=== PATIENT | female | born 1935 | race Caucasian/White ===

== ENCOUNTER 2016-02-24 05:23 | Inpatient (IN) | payer MEDICARE, BC ==
[2016-02-24] VITALS (11 sets, daily range): BP systolic 101–142; BP diastolic 54–111; PULSE 74–80; TEMP 97.2–98.4
[~2016-02-24] VITALS: Ht 162.6 cm; Wt 71.0 kg
[~2016-02-24 05:23] MED LIST: ASPIRIN 81M81 MG/TA2 PO; CALCIUM1 CAP PO; COUMADIN 1MG1 MG/TAB PO; COUMADIN 5MG5 MG/TAB PO; DUO-KAPS1 CAP PO; DYAZIDE 25 MG-31 CAP PO; DYRENIUM 50MG C50 MG PO; FISH OIL1000 MG PO; FOSAMAX 70MG TA70 MG PO; GLUCOSAMINE HC500 MG PO; GLUCOSAMINE MSM1 TAB PO; K-TAB20 PO; LOPRESSOR 225 MG/TAB PO; LOVENOX 3030 MG/0.3 SQ; MAG-G500 MG PO; MOBIC 7.5MG7.5 MG PO; OCUVITE1 TA1 PO; PREDNISONE1 MG PO; PRILOSEC 20MG20 MG PO; ROXICODONE 55 MG/TAB; VERELAN180 MG PO; ZOCOR 20MG20 MG PO
[2016-02-24] MEDS ORDERED: MAGNESIUM250 M1 PO (06:58)
[2016-02-24] MEDS ORDERED: K-DUR20 MEQ PO (07:00)
[2016-02-24] MEDS ORDERED: PREDNISONE 5MG5 MG PO (07:04)
[2016-02-24] MEDS ORDERED: PRAVACHOL 40MG40 MG PO (07:07)
[2016-02-25 05:47] VITALS: BP 110/53; PULSE 63; TEMP 98.7
[2016-02-25 07:08] LABS: MEAN CELL VOLUME 93 fl (80.0-100.0); MEAN CORPUSCULAR HGB CONC 32 g/dl (33.0-37.0); MEAN PLATELET VOLUME 13.5 fl (7.4-10.4); PLATELET COUNT 114 K/mm3 (130-400); RED BLOOD COUNT 3.46 M/mm3 (4.10-5.30); REDCELL DISTRIBUTION WIDTH-CV 14.4 % (11.5-14.5); WHITE BLOOD COUNT 10.9 K/mm3 (4.8-10.8)
[2016-02-25 07:09] LABS: HEMATOCRIT 32.1 % (37.0-47.0); HEMOGLOBIN 10.2 g/dl (12.5-16.0); MEAN CORPUSCULAR HEMOGLOBIN 29 pg (27.0-31.0)
[2016-02-25 07:12] LABS: INR 1.1 (0.8-3.0); PROTHROMBIN TIME 12.2 SECONDS (9.7-12.8)
[2016-02-25 09:43] VITALS: BP 107/56; PULSE 73; TEMP 97.9
== END 2016-02-25 13:05 | disposition home or self-care (01) | DRG 743 ==
LOC: SDCO 05:23 → SURG 11:10
PROVIDERS: Obstetrics & Gynecology; Urology
PROC: 0UTC4ZZ Resection of Cervix, Percutaneous Endoscopic Approach (ICD-10-PCS; 2016-02-24)
PROC: 0UT24ZZ Resection of Bilateral Ovaries, Percutaneous Endoscopic Approach (ICD-10-PCS; 2016-02-24)
PROC: 0UT74ZZ Resection of Bilateral Fallopian Tubes, Percutaneous Endoscopic Approach (ICD-10-PCS; 2016-02-24)
PROC: 8E0W4CZ Robotic Assisted Procedure of Trunk Region, Percutaneous Endoscopic Approach (ICD-10-PCS; 2016-02-24)
PROC: 0UU Female Reproductive System, Supplement (ICD-10-PCS; principal; 2016-02-24 07:30)
PROC: 0UT94ZZ Resection of Uterus, Percutaneous Endoscopic Approach (ICD-10-PCS; 2016-02-24 07:30)
DX: N81.3 Complete uterovaginal prolapse (principal); D25.1 Intramural leiomyoma of uterus; I10 Essential (primary) hypertension; M35.3 Polymyalgia rheumatica; I48.91 Unspecified atrial fibrillation
CPT/HCPCS: A4315; A9284; C1713; C1781; E0710; J0690; J1720; J2175; J2270; J2405; J2704; J3010; J7120; J7512

== ENCOUNTER → 2016-08-03 | Outpatient (CLI) | payer MEDICARE, BC ==
[~2016-08-03] MED LIST changes: +K-DUR20 MEQ PO; +MAGNESIUM250 M1 PO; +PRAVACHOL 40MG40 MG PO; +PREDNISONE 5MG5 MG PO
== END ==
LOC: MC.RAD 10:17
DX: Z12.31 Encounter for screening mammogram for malignant neoplasm of breast (principal)

== ENCOUNTER 2017-01-21 10:43 | Emergency (ER) | payer MEDICARE, BC ==
[~2017-01-21] VITALS: Ht 162.6 cm; Wt 65.0 kg
[2017-01-21 10:47] VITALS: TEMP 97.6
[2017-01-21 11:30] LABS: BASO % 0.4 % (0.0-2.0); EOS # 0.1 (0.0-0.7); GRAN # 5.4 (1.4-6.5); GRAN % 67.8 % (42.2-75.2); HEMOGLOBIN 12.1 g/dl (12.5-16.0); LYMPH # 1.8 (1.2-3.4); LYMPH % 22.9 % (20.0-51.0); MEAN CELL VOLUME 92 fl (80.0-100.0); MEAN CORPUSCULAR HEMOGLOBIN 30 pg (27.0-31.0); MEAN CORPUSCULAR HGB CONC 33 g/dl (33.0-37.0); MEAN PLATELET VOLUME 12.1 fl (7.4-10.4); MONO # 0.6 (0.1-0.6); MONO % 7.5 % (1.7-9.3); PLATELET COUNT 182 K/mm3 (130-400); RED BLOOD COUNT 4.01 M/mm3 (4.10-5.30)
[2017-01-21 11:36] LABS: HEMATOCRIT 36.8 % (37.0-47.0)
[2017-01-21 11:42] LABS: ADJUSTED CALCIUM 9.3 mg/dL (8.4-10.2); ALBUMIN 3.9 gm/dL (3.5-5.0); BILIRUBIN,TOTAL 0.6 mg/dL (0.0-1.0); CALCIUM 9.2 mg/dL (8.4-10.2); CREATININE, serum 1.09 mg/dL (0.52-1.25); POTASSIUM 3.3 mmol/L (3.4-5.0); TOTAL PROTEIN 6.7 gm/dL (6.4-8.2)
[2017-01-21 11:48] LABS: INR 1.5 (0.8-3.0)
[2017-01-21 12:47] LABS: ERYTHROCYTE SEDIMENTATION RATE 13 mm/hr (0-30)
[2017-01-21] MEDS ORDERED: PERCOCET 325 MG1 TA2 PO (13:10)
[2017-01-21 14:56] VITALS: BP 145/76; PULSE 67
== END 2017-01-21 14:27 | disposition home or self-care (01) ==
LOC: COL.ER 10:43
PROVIDERS: Physician Assistant
DX: M54.5 Low back pain (principal); I48.91 Unspecified atrial fibrillation; Z90.49 Acquired absence of other specified parts of digestive tract; Z90.89 Acquired absence of other organs; Z98.890 Other specified postprocedural states; X58.XXXA Exposure to other specified factors, initial encounter
CPT/HCPCS: J2270; J2405

== ENCOUNTER → 2017-08-30 | Outpatient (CLI) | payer MEDICARE, BC ==
[~2017-08-30] MED LIST changes: +PERCOCET 325 MG1 TA2 PO
== END ==
LOC: MC.RAD 10:32
DX: Z12.31 Encounter for screening mammogram for malignant neoplasm of breast (principal); N63.10 Unspecified lump in the right breast, unspecified quadrant; R92.0 Mammographic microcalcification found on diagnostic imaging of breast

== ENCOUNTER → 2017-09-12 | Outpatient (CLI) | payer MEDICARE, BC | LOC: SUN.DIA 10:16 | DX: E11.9 Type 2 diabetes mellitus without complications (principal); E87.5 Hyperkalemia; I10 Essential (primary) hypertension | CPT/HCPCS: G0108 ==

== ENCOUNTER → 2017-10-05 | Outpatient (CLI) | payer MEDICARE, BC | LOC: SUN.DIA 10:15 | DX: E11.9 Type 2 diabetes mellitus without complications (principal); E78.5 Hyperlipidemia, unspecified; I10 Essential (primary) hypertension ==

== ENCOUNTER → 2018-08-02 | Outpatient (CLI) | payer MEDICARE, BC | LOC: COL.RAD 13:30 | DX: S46.111A Strain of muscle, fascia and tendon of long head of biceps, right arm, initial encounter (principal) ==

== ENCOUNTER → 2018-08-08 | Outpatient (CLI) | payer MEDICARE, BC | LOC: MHCPAIN 14:18 | DX: G89.29 Other chronic pain (principal); M47.817 Spondylosis without myelopathy or radiculopathy, lumbosacral region; M54.16 Radiculopathy, lumbar region; M53.3 Sacrococcygeal disorders, not elsewhere classified | CPT/HCPCS: G0463 ==

== ENCOUNTER → 2018-08-31 | Outpatient (CLI) | payer MEDICARE, BC | LOC: MC.RAD 10:45 | DX: Z12.31 Encounter for screening mammogram for malignant neoplasm of breast (principal) ==

== ENCOUNTER → 2018-11-16 | Outpatient (CLI) | payer MEDICARE, BC | LOC: COL.RAD 07:37 | DX: N82.8 Other female genital tract fistulae (principal); R15.9 Full incontinence of feces; Z90.49 Acquired absence of other specified parts of digestive tract; Z90.710 Acquired absence of both cervix and uterus; Z98.1 Arthrodesis status | CPT/HCPCS: Q9967 ==

== ENCOUNTER 2018-11-24 08:03 | Day surgery (SDC) | payer MEDICARE, BC ==
[~2018-11-24] VITALS: Ht 162.6 cm; Wt 59.9 kg
[2018-11-24 08:45] VITALS: BP 134/87; PULSE 76; TEMP 97.2
[2018-11-24] MEDS ORDERED: FOSAMAX 70MG TA70 MG PO (10:22)
[2018-11-24] MEDS ORDERED: LOPRESSOR 225 MG/TAB PO (10:23)
[2018-11-24] MEDS ORDERED: PRILOSEC 20MG20 MG PO (10:24)
[2018-11-24] MEDS ORDERED: PREDNISONE1 MG PO (10:25)
[2018-11-24] MEDS ORDERED: DYAZIDE 25 MG-31 CAP PO (10:26)
[2018-11-24] MEDS ORDERED: VERELAN180 MG PO (10:27)
[2018-11-24] MEDS ORDERED: COUMADIN4 MG PO (10:28)
[2018-11-24] MEDS ORDERED: TYLENOL 500MG500 MG PO (10:29)
[2018-11-24] MEDS ORDERED: ASPIRIN 81M81 MG/TA2 PO (10:30)
[2018-11-24] MEDS ORDERED: FLORAJEN A20 Billion PO (10:31)
[2018-11-24] MEDS ORDERED: GLUCOSAMINE & C1 CA2 PO (10:37)
[2018-11-24] MEDS ORDERED: KLOR-CON M2020 MEQ PO (10:38)
[2018-11-24] MEDS ORDERED: KRILL OIL 1,001 EAC1 PO (10:41)
[2018-11-24] MEDS ORDERED: ANTI-DIARRHEAL2 MG PO (10:41)
[2018-11-24] MEDS ORDERED: MULTIPLE VITAMI1 CAP PO (10:44)
[2018-11-24] MEDS ORDERED: MAGNESIUM200 MG PO (10:44)
[2018-11-24] MEDS ORDERED: VIACTIV PO (10:48)
[2018-11-24] MEDS ORDERED: VISION VITAMINS1 TA1 PO (10:49)
[2018-11-24] MEDS ORDERED: B-121000 MCG PO (10:49)
[2018-11-24 11:36] VITALS: BP 131/64; PULSE 75
--- NOTE | 2018-11-24 11:36 | NUR ---
Patient returns to room 2 per cart from surgery accompanied by Jimmy BULL and Cristina RN. Patient is awake and alert. Temp 97.2 and room air sats 96%. Denies pain or nausea. IV fluids infusing. Siderails up x2 and call light in reach.
[2018-11-24 11:45] VITALS: BP 145/79; PULSE 72
--- NOTE | 2018-11-24 11:45 | NUR ---
Taking crakers and water. Denies discomfort. Dr. Graves and Dr. Isaac to talk with the patient.
[2018-11-24 12:00] VITALS: BP 169/78; PULSE 71
--- NOTE | 2018-11-24 12:13 | NUR ---
Given dismissal instructions and voices understanding of home cares. Instructed that the office will call with follow up appointments. Patient dresses self.
--- NOTE | 2018-11-24 12:25 | NUR ---
Patient dismissed to home driven by spouse and taken to the front door per wheelchair and assisted into car with dismissal instructions in hand.
== END 2018-11-24 12:25 | disposition home or self-care (01) ==
LOC: SDCO 08:03
DX: K57.30 Diverticulosis of large intestine without perforation or abscess without bleeding (principal); N82.3 Fistula of vagina to large intestine; T83.721A Exposure of implanted vaginal mesh into vagina, initial encounter; D64.9 Anemia, unspecified; E11.9 Type 2 diabetes mellitus without complications; G89.29 Other chronic pain; M19.90 Unspecified osteoarthritis, unspecified site; K21.9 Gastro-esophageal reflux disease without esophagitis; K58.9 Irritable bowel syndrome, unspecified; M35.3 Polymyalgia rheumatica; M54.30 Sciatica, unspecified side; M85.80 Other specified disorders of bone density and structure, unspecified site; I10 Essential (primary) hypertension; I48.91 Unspecified atrial fibrillation; I99.9 Unspecified disorder of circulatory system; Z79.01 Long term (current) use of anticoagulants; Z79.82 Long term (current) use of aspirin; Z79.52 Long term (current) use of systemic steroids; Z90.49 Acquired absence of other specified parts of digestive tract; Z90.710 Acquired absence of both cervix and uterus; Z90.89 Acquired absence of other organs; Z88.8 Allergy status to other drugs, medicaments and biological substances; Z79.899 Other long term (current) drug therapy; Z82.49 Family history of ischemic heart disease and other diseases of the circulatory system
CPT/HCPCS: J2405; J2704; J3010; J7120

== ENCOUNTER 2018-12-06 16:10 | Inpatient (IN) | payer MEDICARE, BC ==
[~2018-12-06] VITALS: Ht 152.4 cm; Wt 57.2 kg
[~2018-12-06 16:10] MED LIST changes: +ANTI-DIARRHEAL2 MG PO; +B-121000 MCG PO; +COUMADIN4 MG PO; +FLORAJEN A20 Billion PO; +GLUCOSAMINE & C1 CA2 PO; +KLOR-CON M2020 MEQ PO; +KRILL OIL 1,001 EAC1 PO; +MAGNESIUM200 MG PO; +MULTIPLE VITAMI1 CAP PO; +TYLENOL 500MG500 MG PO; +VIACTIV PO; +VISION VITAMINS1 TA1 PO
[2018-12-12] VITALS (11 sets, daily range): BP systolic 100–136; BP diastolic 52–93; PULSE 70–103; TEMP 97.5–98.6
--- NOTE | 2018-12-12 10:13 | NUR ---
Patient admitted to room 3 ambulatory and is alert and oriented x3. Voices understanding of surgery and consent signed. Labs drawn and EKG done. Family in room. Call light in reach and siderails up x2. Readied for surgery.
[2018-12-12 10:56] LABS: HEMATOCRIT 39.8 % (37.0-47.0); HEMOGLOBIN 12.9 g/dl (12.5-16.0); MEAN CELL VOLUME 92 fl (80.0-100.0); MEAN CORPUSCULAR HEMOGLOBIN 30 pg (27.0-31.0); MEAN CORPUSCULAR HGB CONC 32 g/dl (33.0-37.0); MEAN PLATELET VOLUME 9.4 fl (7.4-10.4); PLATELET COUNT 356 K/mm3 (130-400); RED BLOOD COUNT 4.35 M/mm3 (4.10-5.30)
[2018-12-12 11:11] LABS: CALCIUM 9.6 mg/dL (8.4-10.2); CREATININE, serum 1.23 (0.52-1.25); POTASSIUM 3.6 mmol/L (3.4-5.0)
[2018-12-12] MEDS ORDERED: CBD OIL (11:59)
[2018-12-12 12:07] LABS: BAND 5 % (0-10); LYMPHOCYTE 20 % (20.0-51.0); NEUTROPHILS 66 % (42.0-75.2); PLATELET ESTIMATE NORMAL (NORMAL)
--- NOTE | 2018-12-12 17:31 | NUR ---
arrived on unit per bed from PACU, awake and alert, IVinfusing per dial-a-flow at 100ml/hr, O2 on at 2L/NC, gomez cath patent draining clear yellow urine, ileostomy with nice pink stoma to right side of abdomen
--- NOTE | 2018-12-12 17:45 | NUR ---
full assessment completed, see interventions for further info,
--- NOTE | 2018-12-12 18:15 | NUR ---
c/o pain, medicated with ultram 50mg
--- NOTE | 2018-12-12 19:01 | NUR ---
bedside shift report given to CLARISA Tobar
--- NOTE | 2018-12-12 22:56 | NUR ---
pt doing well. resting in bed. c/o minimal pain. ambulated in room and tolerated well. eras protocol. denies other needs at this time. call light within reach, will continue to monitor
[2018-12-13 04:40] VITALS: BP 116/53; PULSE 67; TEMP 98.4
--- NOTE | 2018-12-13 05:02 | NUR ---
Pt doing well. Abx running. Does not c/o pain, states she feels pretty good. No concerns at this time. Call light within reach, will continue to monitor
[2018-12-13 07:11] LABS: HEMATOCRIT 31.8 % (37.0-47.0); HEMOGLOBIN 10.3 g/dl (12.5-16.0)
[2018-12-13 07:34] LABS: CALCIUM 8.5 mg/dL (8.4-10.2); CREATININE, serum 1.12 (0.52-1.25); MAGNESIUM 1.8 mg/dL (1.6-2.3); PHOSPHOROUS 4.3 mg/dL (2.5-4.5)
[2018-12-13 07:39] VITALS: BP 115/66; PULSE 63; TEMP 97.9
--- NOTE | 2018-12-13 08:00 | NUR ---
SEE MORNING ASSESSMENT. PATIENTS STOMA IS PINK, ROUND AND PROTRUDING WITH SCANT AMOUNTS OF GREEN-COLORED DRAINAGE PRESENT IN OSTOMY BAG. CALL LIGHT WITHIN REACH.
--- NOTE | 2018-12-13 10:40 | NUR ---
PATIENTS MOLINA CATHETER DISCONTINUED PER ORDERS. 9 MLS OF STERILE WATER ASPIRATED FROM BALLOON. BALLOON TIP INTACT. PATIENT TOLERATED WELL. KIMBERLY CARE PROVIDED. PATIENT DENIES ANY OTHER NEEDS AT THIS TIME.
--- NOTE | 2018-12-13 10:44 | NUR ---
Initial visit; Patient and thanked Pbx Manager for looking inb on Gina and offering thanksgiving for healing and God's blessings.
[2018-12-13 11:43] VITALS: BP 101/47; PULSE 63; TEMP 98.3
--- NOTE | 2018-12-13 14:30 | NUR ---
MAGGI IN THE ROOM WITH PATIENT AND CHANGING ILEOSOTOMY APPLIANCE.
--- NOTE | 2018-12-13 14:40 | NUR ---
PATIENT AMBULATED >200 FEET IN HALLWAY WITH THIS NURSE. PATIENT TOLERATED WELL.
--- NOTE | 2018-12-13 15:48 | NUR ---
Amr Physician met with patient and patient's , Iván (ph#[phone]) to discuss discharge planning. Patient lives in [place] with her . Patient sees Dr. Jerardo Morales for primary care and obtains medications from [facility] with no issue. Patient reports independence with ADLS and does not utilize any DME. Patient states she has Advance Directives in place and copy should be in EMR. Patient has no concerns about returning home upon discharge. No additional concerns at this time.
--- NOTE | 2018-12-13 15:49 | NUR ---
PATIENT VOIDING CLEAR PALE YELLOW URINE POST-MOLINA REMOVAL WITHOUT DIFFICULTY. SCANT AMOUNT OF BRIGHT RED BLOOD PRESENT ON THE TOILET PAPER WHEN THE PATIENT WIPED.
[2018-12-13 16:51] VITALS: BP 120/83; PULSE 70; TEMP 97.9
--- NOTE | 2018-12-13 19:11 | NUR ---
REPORT GIVEN TO CLARISA SELF.
[2018-12-13 20:00] VITALS: BP 123/55; PULSE 66; TEMP 98.3
--- NOTE | 2018-12-13 21:32 | NUR ---
Pt doing very well. No c/o pain at this time. Ambulatory in room. Lap sites CD&I. VSS. No other concerns at this time. Call light within reach, will continue to monitor
[2018-12-14 00:15] VITALS: BP 152/87; PULSE 69; TEMP 97.7
[2018-12-14 04:00] VITALS: BP 137/64; PULSE 73; TEMP 98.2
--- NOTE | 2018-12-14 05:45 | NUR ---
Small amount of blood in underwear when going to the bathroom. bright red in color
--- NOTE | 2018-12-14 06:01 | NUR ---
Pt c/o nausea. PRN zofran given. Pt vomitted about 400ml of emesis.
--- NOTE | 2018-12-14 06:45 | NUR ---
resting in bed, bedside shift report received from CLARISA Tobar
[2018-12-14 07:14] LABS: HEMATOCRIT 37.3 % (37.0-47.0)
[2018-12-14 07:33] VITALS: BP 125/70; PULSE 74; TEMP 98.2
[2018-12-14 07:33] LABS: CALCIUM 9.2 mg/dL (8.4-10.2); CREATININE, serum 1.17 (0.52-1.25); POTASSIUM 3.3 mmol/L (3.4-5.0)
--- NOTE | 2018-12-14 08:00 | NUR ---
appears to be sleeping, in bed with lights off, eyes closed, resp quiet and easy
--- NOTE | 2018-12-14 09:29 | NUR ---
Patient has N/V. Dr Ratliff visted patient. 250 ml emesis in basin and 200ml emptied for ileostomy.
--- NOTE | 2018-12-14 09:30 | NUR ---
full assessment completed
--- NOTE | 2018-12-14 09:43 | NUR ---
reviewed assessment completed by student and in agreement with that assessment, ileostomy with 200ml dark colored liquid
--- NOTE | 2018-12-14 10:50 | NUR ---
resting in bed, IV fluids and potassium started by Anne Marie, student RN, at bedside
--- NOTE | 2018-12-14 12:17 | NUR ---
remains resting in bed, reminded of the importance of getting up and walking, verbalizes understanding and will get up soon with student nurse
--- NOTE | 2018-12-14 13:21 | NUR ---
called to room because is upset she did not get her magnesium this morning, states he is afraid she will go into a-fib because she hasn't had trouble since taking potassium and magnesium, explained to him Dr Ratliff wanted her am meds held due to her nausea andvomitting this am, informed him her magnesium was WNL on Tue and that Dr Ratliff had put the magnesium on hold after surgery, informed him will notify Dr Ratliff and explain his concerns, verbalizes understanding
[2018-12-14 13:26] VITALS: BP 146/78; PULSE 87; TEMP 98.2
--- NOTE | 2018-12-14 13:27 | NUR ---
Patient resting in bed. Call light within reach. Reported off to primary nurse. Anne Marie Willson Student Nurse
--- NOTE | 2018-12-14 13:42 | NUR ---
spoke with Dr Ratliff's nurse and informed of 's concern, she spoke with Dr Ratliff and will recheck magnesium in am, and patient informed of this and verbalize understanding, patient conitnues to have abdominal cramping but it is off and on, has liquid in osotomy bag
--- NOTE | 2018-12-14 14:11 | NUR ---
appears to be sleeping, at bedside, student RN will be assisting with care and she wasintroduced to patient's
[2018-12-14 16:00] VITALS: BP 122/71; PULSE 86; TEMP 98.8
--- NOTE | 2018-12-14 17:10 | NUR ---
continues to c/o abdominal cramping that comes and goes, and some nausea, medicated with zofran 4mg by student RN, has only ambulated to bathroom times to and almost to the door, c/o pain when she is up and just weak, abdomen is soft and non distended and had approx 50ml dark urine out of ostomy bag and some air was also expelled, will try jello and beef broth
--- NOTE | 2018-12-14 17:41 | NUR ---
Pt resting in bed in lowest position with call light in reach. Pt's is at bedside. Pt has felt nauseated but is trying jello and beef broth. Pt verbalizes no acute concerns at this time. Reported off to CLARISA Lipscomb.
--- NOTE | 2018-12-14 18:00 | NUR ---
came to desk and is concerned about her pain, entered room and patient states the cramping has gotten worse since having jello, abdomen remains soft and non distended, Dr Ratliff notified and report given, explained this to and patient, informed her she should not be taking any thing by mouth except a few ice chips to keep mouth moist, verbalizes understanding
--- NOTE | 2018-12-14 18:29 | NUR ---
had another approx 200ml brownish colored emesis, up to bathroom and some bloody discharge on depends, assisted back to bed, will sit up on side of bed for a while
--- NOTE | 2018-12-14 18:48 | NUR ---
bedside shift report given to CLARISA Tobar
[2018-12-14 19:27] VITALS: BP 135/73; PULSE 97; TEMP 98.6
--- NOTE | 2018-12-14 21:06 | NUR ---
Pt resting in bed with c/o abdominal pain. States it is a cramping feeling. Denies nausea at this time. Has had no episodes of emesis on this shift so far. No other concerns. CAll light within reach, will continue to monitor
[2018-12-15 00:38] VITALS: BP 143/76; PULSE 93; TEMP 99.3
[2018-12-15 04:29] VITALS: BP 154/79; PULSE 83; TEMP 99.1
--- NOTE | 2018-12-15 05:25 | NUR ---
Pt resting in bed, has had no episodes of emesis during this shift. Did c/o some abominal cramping earlier this shift but has not since
[2018-12-15 06:36] LABS: HEMATOCRIT 37.2 % (37.0-47.0); MEAN CELL VOLUME 92 fl (80.0-100.0); MEAN CORPUSCULAR HEMOGLOBIN 30 pg (27.0-31.0); MEAN CORPUSCULAR HGB CONC 32 g/dl (33.0-37.0); MEAN PLATELET VOLUME 9.2 fl (7.4-10.4); PLATELET COUNT 347 K/mm3 (130-400); RED BLOOD COUNT 4.04 M/mm3 (4.10-5.30); REDCELL DISTRIBUTION WIDTH-CV 14.6 % (11.5-14.5)
--- NOTE | 2018-12-15 06:38 | NUR ---
Pt had episode of emesis of about 100ml. Green liquid in color. Still c/o stomach cramping and abdominal pain.
[2018-12-15 07:33] LABS: CALCIUM 9.1 mg/dL (8.4-10.2); CREATININE, serum 1.05 (0.52-1.25); POTASSIUM 3.9 mmol/L (3.4-5.0)
[2018-12-15 07:56] VITALS: BP 147/77; PULSE 88; TEMP 98.4
--- NOTE | 2018-12-15 08:30 | NUR ---
Patient in bed resting. Alert and oriented x 3. Spouse at bedside. Patient states she is having mild cramping like pain to abdomen. States she is not able to keep anything down at this time, refuses breakfast. Hypoactive bowel sounds noted in all four quadrants. Lap sites x 4 with edges well approximated, low transverse site with edges well approximated as well. Ostomy appliance intact with small amount of stool present. Fluids infusing per orders via pump to left forarm. Denies further needs at this time.
[2018-12-15 11:33] LABS: MAGNESIUM 1.6 mg/dL (1.6-2.3); PHOSPHOROUS 3.5 mg/dL (2.5-4.5)
[2018-12-15 12:38] VITALS: BP 142/73; PULSE 89; TEMP 98.2
--- NOTE | 2018-12-15 13:35 | NUR ---
Patient resting in bed with visitors in the room. Pain level 0. Call light within reach.
[2018-12-15 16:34] VITALS: BP 144/68; PULSE 75; TEMP 97.8
--- NOTE | 2018-12-15 17:45 | NUR ---
Pt resting in bed in lowest position, call light in reach. Pt ambulated with assistance approx. 400 yards, tolerated well. Verbalizes no nausea at this time. Pt verbalizes no acute concerns at this time. Reported off to CLARISA Olvera.
--- NOTE | 2018-12-15 18:25 | NUR ---
Patient continues to refuse meals due to having emisis after eating. Has been up ambulating with RN students throughout the day. Steady gait. States abdominal cramping is better after ambulating. IV fluids continue to infuse per orders. No output from ostomy this afternoon. Patient denies further needs at this time. Will report off to night patrol inspector.
[2018-12-15 20:00] VITALS: BP 152/68; PULSE 80; TEMP 98.6
--- NOTE | 2018-12-15 20:00 | NUR ---
Report received. Assumed care for steel inspector. A&Ox3. Resting in bed watching TV. Assessment complete. Rating pain 2/10-described as an occasional cramp-denies need for intervention. Bowel sounds hypoactive all quads. Denies nausea but does not want to take any PO due to emesis early today. Plan of care discussed for clear liquid diet and IV medications. Denies questions or concerns. D5LR@75ml/hr to left forearm. Denies questions or concerns. Call light in reach. Bed in low position/wheels locked. Will monitor.
[2018-12-16] VITALS (7 sets, daily range): BP systolic 128–169; BP diastolic 67–88; PULSE 73–86; TEMP 97.6–99
[2018-12-16 06:48] LABS: HEMOGLOBIN 10.6 g/dl (12.5-16.0); MEAN CELL VOLUME 92 fl (80.0-100.0); MEAN CORPUSCULAR HEMOGLOBIN 30 pg (27.0-31.0); MEAN CORPUSCULAR HGB CONC 33 g/dl (33.0-37.0); PLATELET COUNT 296 K/mm3 (130-400); RED BLOOD COUNT 3.53 M/mm3 (4.10-5.30); REDCELL DISTRIBUTION WIDTH-CV 14.4 % (11.5-14.5)
[2018-12-16 06:55] LABS: CALCIUM 8.4 mg/dL (8.4-10.2); CREATININE, serum 0.88 (0.52-1.25); MAGNESIUM 1.7 mg/dL (1.6-2.3); POTASSIUM 3.2 mmol/L (3.4-5.0)
[2018-12-16 07:19] LABS: HEMATOCRIT 32.5 % (37.0-47.0)
--- NOTE | 2018-12-16 08:00 | NUR ---
SEE MORNING ASSESSMENT. ABDOMEN DISTENDED BUT SOFT UPON PALPATION. STOMA IS PINK, ROUND AND EDEMATOUS. OSTOMY WAFER AND BAG IN PLACE WITH SCANT AMOUNTS OF GREEN DRAINAGE PRESENT IN OSTOMY BAG. PATIENT TOLERATING SMALL AMOUNTS OF CLEAR LIQUIDS AND DENIES NAUSEA OR VOMITING. PRESENT AT THE BEDSIDE. CALL LIGHT WITHIN REACH. PATIENT DENIES ANY NEEDS AT THIS TIME.
--- NOTE | 2018-12-16 11:22 | NUR ---
JHON met with the patient and the patient's to review discharge plan and to discuss a consult for home health to help with ostomy care and education. The patient and her were interested in home health. JHON provided the patient with Medicare.[place]'s list of home health agencies that serve [place]. The patient chose [facility]. JHON attempted to contacted [facility]. JHON left a voicemail. JHON faxed a referral to [facility]. JHON to continue to follow.
--- NOTE | 2018-12-16 12:15 | NUR ---
Joss, at [facility], reports that they are able to accept the patient for services.
--- NOTE | 2018-12-16 19:15 | NUR ---
REPORT GIVEN TO CLARISA TEMPLE.
--- NOTE | 2018-12-16 20:00 | NUR ---
Report received. 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 A&Ox3. Assessment complete. VS stable. Denies nausea/shortness of breath. Has tolerated a small amount of clear liquids. States she is still nervous to take in much. States she passed gas earlier this shift. Bowel sounds are active all quads. Scant amount of green fluid in ileostomy bag. Refusing scheduled tylenol this shift. States she might take other PO medication-just not at this time as she just drank a glass of water. IV site to left forearm-leaking fluid-redness noted. Will attempt restart. Plan of care discussed for increasing PO intake and ambulation. Verbalizes understanding. Denies need for pain medication. Encouraged to call for questions or concerns. Verbalizes understanding. Call light in reach. Will monitor.
--- NOTE | 2018-12-16 20:45 | NUR ---
Called to room with c/o pain to abdomen-all quadrants. States its a throbbing pain with intermittent cramping. Rating pain 6/10 on pain scale. Refusing PO medications-requesting half a dose of morphine instead of full dose. 1mg Morphine given IV. Bowel sound have increased. Encouraged PO intake. Will monitor.
--- NOTE | 2018-12-16 23:30 | NUR ---
Called to room for c/o pain to all quadrants of abdomen. Rating pain 6/10 on pain scale-throbbing with intermittent cramping. Still refusing PO meds-stating she is scared to take any PO pain meds due to only consuming clear liquids thus far in small amounts. Morphine 2mg given IV per dr order. Will monitor effectiveness.
[2018-12-17 04:00] VITALS: BP 141/74; PULSE 72; TEMP 98.4
--- NOTE | 2018-12-17 04:45 | NUR ---
Has rested well this shift. Denies nausea/pain/shortness of breath. Has tolerated more clear liquids this shift compared to prior, still refusing PO medications. Bowel sounds more active-passing gas-c/o more cramping sensations this shift. Discussed increasing PO intake today. Verbalizes understanding. Denies needs. Call light in reach. Will continue to monitor.
[2018-12-17 07:03] LABS: CALCIUM 8.7 mg/dL (8.4-10.2); CREATININE, serum 0.88 (0.52-1.25); POTASSIUM 3.3 mmol/L (3.4-5.0)
[2018-12-17 07:43] LABS: BASO % 0.2 % (0.0-2.0); EOS # 0.2 (0.0-0.7); EOS % 1.3 % (0-4.0); GRAN # 9.3 (1.4-6.5); GRAN % 80.7 % (42.2-75.2); HEMATOCRIT 31.8 % (37.0-47.0); HEMOGLOBIN 10.2 g/dl (12.5-16.0); LYMPH # 1.4 (1.2-3.4); LYMPH % 11.7 % (20.0-51.0); MEAN CELL VOLUME 93 fl (80.0-100.0); MEAN CORPUSCULAR HEMOGLOBIN 30 pg (27.0-31.0); MEAN CORPUSCULAR HGB CONC 32 g/dl (33.0-37.0); MEAN PLATELET VOLUME 9.2 fl (7.4-10.4); MONO # 0.6 (0.1-0.6); MONO % 4.8 % (1.7-9.3); PLATELET COUNT 310 K/mm3 (130-400); RED BLOOD COUNT 3.41 M/mm3 (4.10-5.30); REDCELL DISTRIBUTION WIDTH-CV 14.2 % (11.5-14.5)
[2018-12-17 07:53] LABS: MAGNESIUM 1.5 mg/dL (1.6-2.3); PHOSPHOROUS 3.1 mg/dL (2.5-4.5)
--- NOTE | 2018-12-17 08:00 | NUR ---
UPON ENTRY TO THE ROOM THIS MORNING THE PATIENT STATES THAT SHE IS FEELING NAUSEATED THIS MORNING AND HAVING DRY HEAVES. PATIENT DENIES EPISODE OF EMESIS. PATIENT GIVEN PRN DOSE OF IV ZOFRAN. PATIENT IS DROWSY BUT A&OX4. VSS. TELE IN PLACE. BOWEL SOUNDS ACTIVE ALL FOUR QUADRANTS. PATIENT TOLERATING SMALL AMOUNTS OF CLEAR LIQUIDS. PATIENTS ABDOMEN IS DISTENDED BUT SOFT UPON PALPATION. ABDOMINAL LAP SITES X4 NICOLE WITH EDGES WELL APPROXIMATED. LOW TRANSVERSE INCISION SENIOR PHARMACY TECHNICIAN WITH EDGES WELL APPROXIMATED. ILEOSTOMY TO RIGHT-SIDE ABDOMEN. OSTOMY WAFER AND BAG IN PLACE WITH SMALL AMOUNTS OF BROWN LIQUID PRESENT IN ILEOSTOMY BAG. ILEOSTOMY APPLIANCE IS CD&I. STOMA IS PINK, ROUND AND EDEMATOUS. PATIENT PASSING FLATUS INTO OSTOMY BAG. PATIENT STATES THAT HER PAIN IS CRAMPING IN NATURE TO THE RIGHT QUADRANTS. PATIENT GIVEN PRN DOSE OF IV MORPHINE AND HEAT PACK APPLIED TO ABDOMEN. PATIENT AMBULATING IN HALLWAYS WITH PT THIS MORNING. IV FLUIDS INFUSING TO LUE IV VIA PUMP. PRESENT AT THE BEDSIDE. CALL LIGHT WITHIN REACH. PATIENT DENIES ANY NEEDS AT THIS TIME.
[2018-12-17 08:11] VITALS: BP 150/66; PULSE 67; TEMP 98.1
--- NOTE | 2018-12-17 10:19 | NUR ---
PATIENT AMBULATING IN THE HALLWAY WITH HER . PATIENT REPORTS THAT SHE EMPTIED HER ILEOSTOMY BAG ON HER OWN. AMOUNT UNMEASURED.
[2018-12-17 12:25] VITALS: BP 118/64; PULSE 65; TEMP 97.8
[2018-12-17 16:00] VITALS: BP 163/93; PULSE 79; TEMP 97.6
--- NOTE | 2018-12-17 19:30 | NUR ---
REPORT GIVEN TO CLARISA TEMPLE.
[2018-12-17 20:00] VITALS: BP 132/90; PULSE 72; TEMP 98.3
--- NOTE | 2018-12-17 20:00 | NUR ---
Report received. Assumed care for shift production associate. A&Ox3. Assessment complete. VS stable. Denies pain except occasional cramping. Denies need for intervention. Denies nausea. Tolerating diet. States she is passing more gas and has had an increase in output to ileostomy. Lap sites x4-edges well approximated. Low abdominal transverse incision-edges well approximated. No redeness/swelling/discharge. States she is excited to finally be feeling better. Has ambulated in hallways. States she has emptied ileostomy bag and provided care earlier today. Denies questions or concerns. Encouraged to call for needs/increase in pain. Call light in reach. Will monitor.
[2018-12-18] VITALS (8 sets, daily range): BP systolic 136–184; BP diastolic 67–85; PULSE 70–84; TEMP 97.6–98.6
--- NOTE | 2018-12-18 04:15 | NUR ---
Notified by Tele of five beat run of V tach. Vitals done and WNL. Denies shortness of breath/chest pain/palpitations stating "I feel fine." EKG ordered per Tele protocol. Maxim continue to monitor.
[2018-12-18 07:06] LABS: HEMOGLOBIN 10.8 g/dl (12.5-16.0); MEAN CELL VOLUME 93 fl (80.0-100.0); MEAN CORPUSCULAR HEMOGLOBIN 30 pg (27.0-31.0); MEAN CORPUSCULAR HGB CONC 32 g/dl (33.0-37.0); MEAN PLATELET VOLUME 9.1 fl (7.4-10.4); PLATELET COUNT 305 K/mm3 (130-400); RED BLOOD COUNT 3.59 M/mm3 (4.10-5.30); REDCELL DISTRIBUTION WIDTH-CV 14.3 % (11.5-14.5)
[2018-12-18 07:09] LABS: HEMATOCRIT 33.4 % (37.0-47.0)
[2018-12-18 07:29] LABS: CALCIUM 8.5 mg/dL (8.4-10.2); CREATININE, serum 0.77 (0.52-1.25); MAGNESIUM 1.9 mg/dL (1.6-2.3); POTASSIUM 3.6 mmol/L (3.4-5.0)
[2018-12-18 07:56] LABS: BAND 3 % (0-10); EOSINOPHIL 2 % (0-4); LYMPHOCYTE 19 % (20.0-51.0); METAMYELOCYTE 1 % (0-0); MYELOCYTE 1 % (0-0); NEUTROPHILS 73 % (42.0-75.2); PLATELET ESTIMATE NORMAL (NORMAL)
--- NOTE | 2018-12-18 08:30 | NUR ---
Patient in bed resting. Alert and oriented x 3. Shift assessment complete. Patient having output from ostomy. Changing and emptying appliance herself. States mild abdominal cramping. Educated patient on taking oral medications. Lap sites x 4 and low transverse incision with edged well approximated. SCDs to BLE. Denies further needs at this time.
--- NOTE | 2018-12-18 13:25 | NUR ---
Notified Romina COLES, patients HR increased to 130's while ambulating with PT
--- NOTE | 2018-12-18 16:31 | NUR ---
Rn Corrections faxed updates to [facility]. SW to continue to follow to ensure safe discharge.
--- NOTE | 2018-12-18 18:41 | NUR ---
Patient has done well throughout the day, has been up ambulating in room, steady gait. Patient requested pain medication once throughout the day for stomach cramping, given per orders. Patient continues to have liquid output from ostomy. Appliance remains intact. Tolerating diet without difficulties. Denies further needs at this time. Will report off to shift foreman.
--- NOTE | 2018-12-18 21:00 | NUR ---
Pt. sitting up in bed watching TV at this time. Pt. is A&OX3, assessment complete. INT to lt. upper arm patent. Abd. incisions well approximated. Ileostomy intact. Pt. reports pain at a 4 on pain scale. Will give pain meds per orders. Pt. denies further needs, call light within reach.
[2018-12-19 04:56] VITALS: BP 118/57; PULSE 68; TEMP 98.5
[2018-12-19 06:24] LABS: HEMOGLOBIN 11.6 g/dl (12.5-16.0); MEAN CELL VOLUME 93 fl (80.0-100.0); MEAN CORPUSCULAR HEMOGLOBIN 30 pg (27.0-31.0); MEAN CORPUSCULAR HGB CONC 32 g/dl (33.0-37.0); MEAN PLATELET VOLUME 9.2 fl (7.4-10.4); PLATELET COUNT 318 K/mm3 (130-400); RED BLOOD COUNT 3.93 M/mm3 (4.10-5.30); REDCELL DISTRIBUTION WIDTH-CV 14.4 % (11.5-14.5)
[2018-12-19 06:29] LABS: HEMATOCRIT 36.5 % (37.0-47.0)
[2018-12-19 06:41] LABS: CALCIUM 8.6 mg/dL (8.4-10.2); CREATININE, serum 0.84 (0.52-1.25); MAGNESIUM 1.5 mg/dL (1.6-2.3); POTASSIUM 3.7 mmol/L (3.4-5.0)
[2018-12-19 07:18] LABS: BAND 1 % (0-10); EOSINOPHIL 2 % (0-4); LYMPHOCYTE 15 % (20.0-51.0); NEUTROPHILS 81 % (42.0-75.2); PLATELET ESTIMATE NORMAL (NORMAL)
[2018-12-19 07:19] LABS: HYPOCHROMIA 2+
[2018-12-19 07:40] VITALS: BP 120/68; PULSE 76; TEMP 97.6
--- NOTE | 2018-12-19 08:00 | NUR ---
Patient sitting up in recliner. Alert and oriented x 3. Shift assessment complete. Patient having liquid stool output from ostomy. Denies pain at this time. Patient states she does not have much intrest in eating this AM. Denies further needs at this time.
--- NOTE | 2018-12-19 11:06 | NUR ---
First visit from the supervisor/port director. No needs right now.
[2018-12-19 11:21] VITALS: BP 111/56; PULSE 71; TEMP 97
[2018-12-19 16:19] VITALS: BP 128/65; PULSE 81; TEMP 98.6
[2018-12-19 19:12] VITALS: BP 116/67; PULSE 86; TEMP 98
--- NOTE | 2018-12-19 19:16 | NUR ---
Patient has done well throughout the day. States she has been tired and would like to be left alone as much as possible to nap. Ambulated with physical therapy today without difficulty. States she feels mild nausea whenever trays arrive in room. Denies pain or further needs at this time. Reported off to mine shifter.
[2018-12-19 23:54] VITALS: BP 124/68; PULSE 78; TEMP 98.3
--- NOTE | 2018-12-20 03:21 | NUR ---
Patient requested Tramadol at the beginning of the shift. Noted to be effective for pain relief. Patient has rested well throughout the night. Requests that staff minimize the interruptions of sleep and this has been done to the best of our ability. Decent amount of output from ostomy noted. Patient denies any further needs. Will continue to monitor.
[2018-12-20 04:00] VITALS: BP 117/71; PULSE 68; TEMP 98.4
[2018-12-20 07:00] VITALS: BP 110/54; PULSE 67; TEMP 97.9
[2018-12-20 07:34] LABS: MEAN CELL VOLUME 93 fl (80.0-100.0); MEAN CORPUSCULAR HEMOGLOBIN 30 pg (27.0-31.0); MEAN CORPUSCULAR HGB CONC 32 g/dl (33.0-37.0); MEAN PLATELET VOLUME 9.3 fl (7.4-10.4); PLATELET COUNT 340 K/mm3 (130-400); RED BLOOD COUNT 3.72 M/mm3 (4.10-5.30); REDCELL DISTRIBUTION WIDTH-CV 14.6 % (11.5-14.5)
[2018-12-20 07:41] LABS: HEMATOCRIT 34.6 % (37.0-47.0)
[2018-12-20 07:56] LABS: CALCIUM 8.8 mg/dL (8.4-10.2); CREATININE, serum 0.88 (0.52-1.25)
[2018-12-20] MEDS ORDERED: ULTRAM 50MG TAB50 MG PO (08:47)
[2018-12-20 09:27] LABS: HYPOCHROMIA 1+; LYMPHOCYTE 13 % (20.0-51.0); NEUTROPHILS 85 % (42.0-75.2)
[2018-12-20 09:29] LABS: PLATELET ESTIMATE NORMAL (NORMAL)
[2018-12-20 10:50] VITALS: BP 122/56; PULSE 75; TEMP 97.9
--- NOTE | 2018-12-20 12:40 | NUR ---
Patient ready for discharge. Patient has orders obtained. & hospitalist have rounded. Int Dc. Tele off. We reviewed all discharge paperwork including follow up appts., home med list, medication safety & new scripts. We discussed incision care & ostomy care. Patient wheeled out with all belongings her taking her home. She denies questions or concerns.
--- NOTE | 2018-12-20 13:37 | NUR ---
Carpet Cleaner faxed discharge orders and contacted Joss at [facility]. SW spoke with patient who has no additional concerns at this time. Patient to discharge home with HH.
== END 2018-12-20 12:40 | disposition home health service (06) | DRG 330 ==
LOC: SURG 12-12 10:06 → INPTSU 12-12 10:06 → SURG 12-12 12:00
PROVIDERS: Hospitalist; Nurse Practitioner Family; Physician Assistant; Urology; ADMIT Surgery
PROC: 0DTN4ZZ Resection of Sigmoid Colon, Percutaneous Endoscopic Approach (ICD-10-PCS; principal; 2018-12-12 12:00)
PROC: 0D1B4Z4 Bypass Ileum to Cutaneous, Percutaneous Endoscopic Approach (ICD-10-PCS; 2018-12-12 12:00)
PROC: 8E0W3CZ Robotic Assisted Procedure of Trunk Region, Percutaneous Approach (ICD-10-PCS; 2018-12-12 12:00)
PROC: 0TJ98ZZ Inspection of Ureter, Via Natural or Artificial Opening Endoscopic (ICD-10-PCS; 2018-12-13)
DX: N82.3 Fistula of vagina to large intestine (principal); K56.7 Ileus, unspecified; I47.2 Ventricular tachycardia; I10 Essential (primary) hypertension; I48.91 Unspecified atrial fibrillation; K21.9 Gastro-esophageal reflux disease without esophagitis; M35.3 Polymyalgia rheumatica; G89.29 Other chronic pain; M54.9 Dorsalgia, unspecified; E83.42 Hypomagnesemia; E87.6 Hypokalemia; D72.829 Elevated white blood cell count, unspecified; R53.81 Other malaise; M81.0 Age-related osteoporosis without current pathological fracture; Z79.01 Long term (current) use of anticoagulants; Z79.52 Long term (current) use of systemic steroids; Z79.82 Long term (current) use of aspirin; Z88.6 Allergy status to analgesic agent; Z90.710 Acquired absence of both cervix and uterus
CPT/HCPCS: 99223; 99231-AI; 99233-AI; 99239; A4314; A9284; C9113; J0690; J1100; J1650; J1720; J2250; J2270; J2405; J2543; J2704; J3010; J3475; J3480; J7030; J7120; J7121; J7512; Q9967

== ENCOUNTER → 2019-01-09 | Outpatient (CLI) | payer MEDICARE, BC ==
[~2019-01-09] MED LIST changes: +CBD OIL; +ULTRAM 50MG TAB50 MG PO
== END ==
LOC: COL.RAD 08:06
DX: M41.86 Other forms of scoliosis, lumbar region (principal); Z98.0 Intestinal bypass and anastomosis status; Z98.1 Arthrodesis status

== ENCOUNTER → 2019-06-01 | Outpatient (CLI) | payer MEDICARE, BC | LOC: COL.RAD 08:15 | DX: I65.23 Occlusion and stenosis of bilateral carotid arteries (principal); I67.82 Cerebral ischemia; G31.9 Degenerative disease of nervous system, unspecified; G50.1 Atypical facial pain; I10 Essential (primary) hypertension; I73.9 Peripheral vascular disease, unspecified | CPT/HCPCS: A9585 ==

== ENCOUNTER → 2019-09-03 | Outpatient (CLI) | payer MEDICARE, BC | LOC: COL.RAD 10:53 | DX: R22.1 Localized swelling, mass and lump, neck (principal) | CPT/HCPCS: Q9967 ==

== ENCOUNTER 2020-11-03 12:45 | Outpatient (RCR) | payer MEDICARE, BC | END 2021-01-04 | disposition home or self-care (01) | LOC: WSST | DX: R47.89 Other speech disturbances (principal) ==

== ENCOUNTER 2021-06-25 22:01 | Inpatient (IN) | payer MEDICARE, BC ==
[~2021-06-25] VITALS: Ht 165.1 cm; Wt 61.7 kg
[2021-06-25 22:47] LABS: INR 3.5 (0.8-3.0); MEAN CELL VOLUME 87 fl (80.0-100.0); MEAN CORPUSCULAR HGB CONC 30 g/dl (33.0-37.0); MEAN PLATELET VOLUME 11.1 fl (7.4-10.4); PLATELET COUNT 315 K/mm3 (130-400); PROTHROMBIN TIME 40.5 SECONDS (9.7-12.8); RED BLOOD COUNT 2.18 M/mm3 (4.10-5.30); REDCELL DISTRIBUTION WIDTH-CV 15.3 % (11.5-14.5)
[2021-06-25 22:57] LABS: HEMATOCRIT 18.9 % (37.0-47.0); HEMOGLOBIN 5.6 g/dl (12.5-16.0); MEAN CORPUSCULAR HEMOGLOBIN 26 pg (27-31)
[2021-06-25 23:11] LABS: ALBUMIN 3.2 gm/dL (3.4-4.8); BILIRUBIN,TOTAL 0.2 mg/dL (0.2-1.2); CREATININE, serum 1.39 mg/dL (0.57-1.11); TOTAL PROTEIN 5.9 gm/dL (6.2-8.1)
[2021-06-25 23:16] LABS: PLATELET ESTIMATE NORMAL (NORMAL)
[2021-06-25 23:17] LABS: ANISOCYTOSIS 1+; HYPOCHROMIA 2+
[2021-06-26] VITALS (15 sets, daily range): BP systolic 105–159; BP diastolic 51–107; PULSE 66–83; TEMP 97.7–99
[2021-06-26] MEDS ORDERED: COUMADIN 5MG5 MG/TAB PO ×2 (00:08→00:09)
[2021-06-26] MEDS ORDERED: COLESTID 1GM1 G PO (00:11)
[2021-06-26] MEDS ORDERED: K-TAB20 PO (00:12)
[2021-06-26] MEDS ORDERED: VERELAN180 MG PO (00:13)
[2021-06-26] MEDS ORDERED: PREDNISONE1 MG PO (00:14)
[2021-06-26] MEDS ORDERED: LOPRESSOR 225 MG/TAB PO (00:14)
[2021-06-26] MEDS ORDERED: NEURONTIN300 MG/CAP PO (00:16)
[2021-06-26] MEDS ORDERED: PERIDEX (CHLOR480 ML MM (00:16)
[2021-06-26] MEDS ORDERED: NAPROSYN 2250 MG/TAB (00:18)
[2021-06-26] MEDS ORDERED: VITAMIN D31000 I1 PO (00:22)
[2021-06-26] MEDS ORDERED: CALCIUM-500 5001 CTB PO (00:38)
[2021-06-26 02:08] LABS: COLLECTION METHOD CLEAN CATCH
[2021-06-26 02:16] LABS: MUCOUS Present (NOT PRESENT); PH 5 (5-8); SQUAMOUS EPITHELIAL None Seen /hpf (0-10); URINE APPEARANCE Clear (CLEAR/HAZY); URINE BACTERIA None Seen /hpf (NONE SEEN); URINE BILIRUBIN Negative (NEGATIVE); URINE BLOOD Negative (NEGATIVE); URINE COLOR Yellow (YELLOW); URINE GLUCOSE Negative (NEGATIVE); URINE KETONE Negative (NEGATIVE); URINE LEUKOCYTE ESTERASE Negative (NEGATIVE); URINE NITRATE Negative (NEGATIVE); URINE PROTEIN(semi-quant) Negative (NEGATIVE); URINE RBC None Seen /hpf (0-2); URINE UROBILINOGEN Negative (NEGATIVE)
--- NOTE | 2021-06-26 02:44 | NUR ---
Received report from ED. Patient here for GI bleed. VSS. Intake performed. Patient oriented to room. Blood transfusion begun. Patient instructed on NPO status. Call light within reach.
[2021-06-26 05:03] LABS: INR 3.4 (0.8-3.0); PROTHROMBIN TIME 40.1 SECONDS (9.7-12.8)
[2021-06-26 05:07] LABS: BASO % 0.4 % (0.0-2.0); EOS # 0.3 K/mm3 (0.0-0.7); EOS % 3.4 % (0.0-4.0); GRAN # 5.3 K/mm3 (1.4-6.5); GRAN % 58.6 % (42.2-75.2); LYMPH # 2.4 K/mm3 (1.2-3.4); LYMPH % 26.2 % (20.0-51.0); MEAN CELL VOLUME 87 fl (80.0-100.0); MEAN CORPUSCULAR HGB CONC 30 g/dl (33.0-37.0); MEAN PLATELET VOLUME 12.7 fl (7.4-10.4); MONO % 10.8 % (1.7-9.3); RED BLOOD COUNT 2.24 M/mm3 (4.10-5.30); REDCELL DISTRIBUTION WIDTH-CV 14.8 % (11.5-14.5)
[2021-06-26 05:11] LABS: HEMATOCRIT 19.5 % (37.0-47.0); HEMOGLOBIN 5.9 g/dl (12.5-16.0); MEAN CORPUSCULAR HEMOGLOBIN 26 pg (27-31); PLATELET COUNT 202 K/mm3 (130-400)
[2021-06-26 05:13] LABS: CALCIUM 7.8 mg/dL (8.4-10.2); CREATININE, serum 1.03 mg/dL (0.57-1.11); POTASSIUM 4.5 mmol/L (3.5-4.5)
--- NOTE | 2021-06-26 06:31 | NUR ---
Patient Hgb increased from 5.6 to 5.9. Transfusing another unit of PRBC. Patient has tolerated well so far. VSS.
[2021-06-26 08:52] LABS: HEMATOCRIT 23.7 % (37.0-47.0); HEMOGLOBIN 7.5 g/dl (12.5-16.0)
--- NOTE | 2021-06-26 09:35 | NUR ---
Initial visit; Patient thanked Operations Research Manager for looking in on her and offering God's blessings and keeping her in Operations Research Manager's prayers.
--- NOTE | 2021-06-26 11:05 | NUR ---
PT TO HAVE EGD COLON THIS PM. BOWEL PREP ONGOING WITH PT STARTING TO EVACUATE BOWELS. PT DRINKING GO LYTLEY. AT BEDSIDE.
--- NOTE | 2021-06-26 12:30 | NUR ---
elevator worker met with patient to complete intake and discuss discharge plan. Patients Iván ([phone]) present at bedside. Patient and her both live at home in [place]. She is fully independent with her ADL's and uses a cane to assist with ambulation PRN. She has no home oxygen needs. PCP is Dr. Morales and she utilizes [facility] for medications with no cost difficulty. Patient does have a DPOA-HC estbalished listing her Iván and daughter Natalia. She is planning on returning home once medically ready with no concerns. Discharge plan: Home with spouse
[2021-06-26 14:54] LABS: HEMATOCRIT 27.1 % (37.0-47.0); HEMOGLOBIN 8.3 g/dl (12.5-16.0)
--- NOTE | 2021-06-26 16:16 | NUR ---
PT TO ENDO AT THIS TIME.
[2021-06-27 00:14] VITALS: BP 117/65; PULSE 71; TEMP 98.4
--- NOTE | 2021-06-27 03:08 | NUR ---
Received report from day shift. Patient alert and oriented x4. Patient denies pain at this time. Assessment performed. PM meds administered. Fluids running at 75. Tolerating fluids and dinner well. Call light within reach.
[2021-06-27 04:00] VITALS: BP 141/59; PULSE 65; TEMP 97.7
[2021-06-27 06:27] LABS: BASO % 0.4 % (0.0-2.0); EOS # 0.3 K/mm3 (0.0-0.7); EOS % 2.8 % (0.0-4.0); GRAN # 5.8 K/mm3 (1.4-6.5); GRAN % 65.5 % (42.2-75.2); LYMPH # 1.9 K/mm3 (1.2-3.4); LYMPH % 20.7 % (20.0-51.0); MEAN CELL VOLUME 87 fl (80.0-100.0); MEAN CORPUSCULAR HGB CONC 31 g/dl (33.0-37.0); MEAN PLATELET VOLUME 9.9 fl (7.4-10.4); MONO # 0.9 K/mm3 (0.1-0.6); MONO % 10.3 % (1.7-9.3); PLATELET COUNT 266 K/mm3 (130-400); RED BLOOD COUNT 2.74 M/mm3 (4.10-5.30)
[2021-06-27 06:28] LABS: HEMATOCRIT 23.7 % (37.0-47.0); HEMOGLOBIN 7.4 g/dl (12.5-16.0); MEAN CORPUSCULAR HEMOGLOBIN 27 pg (27-31)
[2021-06-27 06:36] LABS: CALCIUM 7.6 mg/dL (8.4-10.2); CREATININE, serum 0.95 mg/dL (0.57-1.11); POTASSIUM 4.1 mmol/L (3.5-4.5)
[2021-06-27 07:46] VITALS: BP 140/69; PULSE 71; TEMP 98.4
[2021-06-27 12:03] VITALS: BP 135/74; PULSE 66; TEMP 98.1
[2021-06-27 16:10] VITALS: BP 136/71; PULSE 77; TEMP 98.5
[2021-06-27 18:22] LABS: HEMATOCRIT 25.1 % (37.0-47.0)
[2021-06-27 20:53] VITALS: BP 124/64; PULSE 82; TEMP 98
--- NOTE | 2021-06-27 21:07 | NUR ---
PATIENT HAS NO C/O PAIN OR DISCOMFORT NO S/S OF BLEEDING NOTED, POSSIBLE DISCHARGE TOMORROW PATIENT LAST HGB 8. CONTINUES WITH PROTONIX AND PREDNISONE. WILL CONTINUE TO MONITOR FOR ANY CHANGES. CALL LIGHT WITHIN REACH USING MOUTHWASH DIRECTED.
[2021-06-28 00:15] VITALS: BP 145/87; PULSE 74; TEMP 98.5
[2021-06-28 04:00] VITALS: BP 121/67; PULSE 63; TEMP 98.2
--- NOTE | 2021-06-28 04:06 | NUR ---
PATIENT SLEEPING THROUGHOUT THE NIGHT NO BLEEDING NOTED PENDING BLOOD WORK THIS MORNING. NO PAIN NOTED WILL CONTINUE TO MONITOR FOR ANY CHANGES. PATIENT COMFORTABLE AT THIS TIME.
[2021-06-28 06:18] LABS: BASO % 0.4 % (0.0-2.0); EOS # 0.3 K/mm3 (0.0-0.7); EOS % 3.2 % (0.0-4.0); GRAN # 6.8 K/mm3 (1.4-6.5); GRAN % 66.6 % (42.2-75.2); LYMPH # 1.8 K/mm3 (1.2-3.4); LYMPH % 17.8 % (20.0-51.0); MEAN CELL VOLUME 85 fl (80.0-100.0); MEAN CORPUSCULAR HGB CONC 32 g/dl (33.0-37.0); MEAN PLATELET VOLUME 9.9 fl (7.4-10.4); MONO # 1.2 K/mm3 (0.1-0.6); MONO % 11.5 % (1.7-9.3); PLATELET COUNT 252 K/mm3 (130-400); RED BLOOD COUNT 2.79 M/mm3 (4.10-5.30); REDCELL DISTRIBUTION WIDTH-CV 15.2 % (11.5-14.5)
[2021-06-28 06:32] LABS: CALCIUM 7.7 mg/dL (8.4-10.2); CREATININE, serum 0.96 mg/dL (0.57-1.11); HEMATOCRIT 23.6 % (37.0-47.0); HEMOGLOBIN 7.5 g/dl (12.5-16.0); MEAN CORPUSCULAR HEMOGLOBIN 27 pg (27-31); POTASSIUM 3.8 mmol/L (3.5-4.5)
[2021-06-28 07:50] VITALS: BP 129/63; PULSE 58; TEMP 98.6
[2021-06-28] MEDS ORDERED: PROTONIX 40MG T40 MG PO (10:26)
--- NOTE | 2021-06-28 11:16 | NUR ---
PT IS TO BE DISCHARGED, EXPRESSES THAT SHE FEELS READY. DISCHARGE EDUCATION ET INSTRUCTIONS GIVEN TO PT ET SPOUSE, VERBALIZE UNDERSTANDING, DENY QUESTIONS. PT HAS BEEN UP IN ROOM INDEPENDENTLY THIS MORNING HAS DONE WELL. PT IS NOTED TO SOMETIMES BECOME SOA WITH ACTIVITY BUT RECOVERS EASILY ON ROOM AIR. PERIPHERAL IV DCED. PT DRESSES SELF IN STREET CLOTHES. PT WILL RETURN HOME WITH SPOUSE.
== END 2021-06-28 11:40 | disposition home or self-care (01) | DRG 378 ==
LOC: COL.ER 22:01 → SURG 23:38
PROVIDERS: Internal Medicine Gastroenterology; Nurse Practitioner Family; Personal Emergency Response Attendant; Physician Assistant; Student in an Organized Health Care Education/Training Program; ADMIT Internal Medicine
PROC: 0DJ08ZZ Inspection of Upper Intestinal Tract, Via Natural or Artificial Opening Endoscopic (ICD-10-PCS; principal; 2021-06-26 16:00)
PROC: 0DJD8ZZ Inspection of Lower Intestinal Tract, Via Natural or Artificial Opening Endoscopic (ICD-10-PCS; 2021-06-26 16:00)
DX: K26.4 Chronic or unspecified duodenal ulcer with hemorrhage (principal); E87.2 Acidosis; N17.9 Acute kidney failure, unspecified; D64.9 Anemia, unspecified; M35.3 Polymyalgia rheumatica; I48.0 Paroxysmal atrial fibrillation; I10 Essential (primary) hypertension; K21.9 Gastro-esophageal reflux disease without esophagitis; M81.0 Age-related osteoporosis without current pathological fracture; G89.29 Other chronic pain; M54.9 Dorsalgia, unspecified; E87.5 Hyperkalemia; K57.30 Diverticulosis of large intestine without perforation or abscess without bleeding; R73.9 Hyperglycemia, unspecified; Z20.822 Contact with and (suspected) exposure to COVID-19; Z79.01 Long term (current) use of anticoagulants; Z79.52 Long term (current) use of systemic steroids; Z79.82 Long term (current) use of aspirin
CPT/HCPCS: 99223-AI; 99232-AI; 99233-AI; 99239; C9113; J2704; J7030; J7512; P9016

== ENCOUNTER → 2021-09-01 | Outpatient (CLI) | payer MEDICARE, BC ==
[~2021-09-01] MED LIST changes: +CALCIUM-500 5001 CTB PO; +COLESTID 1GM1 G PO; +NAPROSYN 2250 MG/TAB; +NEURONTIN300 MG/CAP PO; +PERIDEX (CHLOR480 ML MM; +PROTONIX 40MG T40 MG PO; +VITAMIN D31000 I1 PO
== END ==
LOC: MC.RAD 16:28
DX: Z12.31 Encounter for screening mammogram for malignant neoplasm of breast (principal)

== ENCOUNTER → 2022-11-26 | Outpatient (CLI) | payer MEDICARE, BC ==
[~2022-11-26] MED LIST changes: +FERROUS SU325 MG/TAB PO; +LASIX 20MG TABL20 MG PO; +NORCO 325 MG-51 TAB PO; +PACERONE400 MG PO; +ZEBETA 5MG5 MG PO
[2022-11-26 13:27] LABS: BASO # 0.1 K/mm3 (0.0-0.2); BASO % 0.5 % (0.0-2.0); EOS # 0.2 K/mm3 (0.0-0.7); EOS % 2.2 % (0.0-4.0); GRAN # 7.5 K/mm3 (1.4-6.5); GRAN % 77.2 % (42.2-75.2); HEMATOCRIT 37.7 % (37.0-47.0); HEMOGLOBIN 12.5 g/dl (12.5-16.0); LYMPH # 1.3 K/mm3 (1.2-3.4); LYMPH % 12.9 % (20.0-51.0); MEAN CELL VOLUME 92 fl (80.0-100.0); MEAN CORPUSCULAR HEMOGLOBIN 30 pg (27-31); MEAN CORPUSCULAR HGB CONC 33 g/dl (33.0-37.0); MEAN PLATELET VOLUME 13.2 fl (7.4-10.4); MONO # 0.6 K/mm3 (0.1-0.6); MONO % 6.6 % (1.7-9.3); PLATELET COUNT 206 K/mm3 (130-400); RED BLOOD COUNT 4.11 M/mm3 (4.10-5.30); REDCELL DISTRIBUTION WIDTH-CV 14.1 % (11.5-14.5)
[2022-11-26 13:36] LABS: PARTIAL THROMBOPLASTIN TIME 55.8 SECONDS (26.0-37.0)
[2022-11-26 13:56] LABS: INR 5.3 (0.8-3.0); PROTHROMBIN TIME 55.2 SECONDS (9.7-12.8)
== END ==
LOC: COL.LAB 11:40
PROVIDERS: Student in an Organized Health Care Education/Training Program
DX: Z79.01 Long term (current) use of anticoagulants (principal)

== ENCOUNTER 2023-02-21 05:45 | Day surgery (SDC) | payer MEDICARE, BC ==
[~2023-02-21] VITALS: Ht 162.6 cm; Wt 55.4 kg
[2023-02-21] VITALS (11 sets, daily range): BP systolic 108–161; BP diastolic 54–88; PULSE 46–66; TEMP 97.1–98.4
[2023-02-21 06:46] LABS: PROTHROMBIN TIME 10.7 SECONDS (9.7-12.8)
[2023-02-21] MEDS ORDERED: CORDARONE200 MG/TAB PO (07:15)
--- NOTE | 2023-02-21 07:37 | NUR ---
Patient's home med list not verified with pt. She states she took her prescribed home medications at 0510. She was not certain medications names. Anesthesia provider aware. Pedro Larson states he is compfortable using the medication list on pt's chart from her PCP. Family can verify home meds when they get home.
--- NOTE | 2023-02-21 07:44 | NUR ---
0600 Pt ambulatory to bay 8 with a steady gait, breathing even and unlabored. Pt is alert and oriented, accompanied today by her and daughter. Consents reviewed with patient and signed by pt. IV established. LR infusing via dial a flow. Call light in reach. Warm blankets provided.
--- NOTE | 2023-02-21 11:50 | NUR ---
Pt recently arrived to the floor from pacu. Pt is alert and oriented with no pain complaints. PT does have feeling in her leg and can wiggle her toes. DRSG to left knee is CDI with hemovac to compression. IVF infusing, SCDs on bilaterlly and kailyn hose to the right leg. Pt does have family at the bedside. Oriented them to room and educated to notify nursing when she is ready to get something to eat as she stated she was no hungry at this time
[2023-02-21] MEDS ORDERED: PROTONIX 40MG T40 MG PO (12:27)
[2023-02-21] MEDS ORDERED: KLOR-CON M2020 MEQ PO (12:28)
[2023-02-21] MEDS ORDERED: VERAPAMIL180 MG/TAB PO (12:30)
[2023-02-21] MEDS ORDERED: VERELAN180 MG PO (12:31)
--- NOTE | 2023-02-21 13:20 | NUR ---
general ii farmworker recieved a consult from Dr. Armenta with the need for Outpatient PT. SW briefly met with pt, daughter, and spouse at bedside to get a decision. The family agreed on [facility] as they have used them in the past. SW said she will send this over and they will schedule. Intake not completed-- Discharge Plan: Home with OP PT [facility]
--- NOTE | 2023-02-21 13:39 | NUR ---
Pt continues to do well. SHe has been up walking in the halls with stand by assist and walker. Pt had only slight increase in pain with activity, denies the need for any pain medication. Family remains at bedside
--- NOTE | 2023-02-21 16:16 | NUR ---
When doing med list, pt verbalized taking medication different as to what the latest med claim history suggests. automotive technology instructor also reviewed medications with them as well as Kate COLES
--- NOTE | 2023-02-21 19:02 | NUR ---
Pt did well throughout the afternoon. She continued to deny having much pain. Tolerating general diet with no issues or complaints. Call light within reach, report given to shiftman
--- NOTE | 2023-02-21 19:06 | NUR ---
report received from raleigh sanders. pt sitting in bed and talking on the phone with family. pt denies pain. pt educated about hemovac and the purpose of it. call light in reach. all needs met at this time.
--- NOTE | 2023-02-21 20:24 | NUR ---
shift assessment complete, see documentation. pt denies pain at this time. pt ambulates well with sba and walker to bathroom. pt tolerated hs meds without issue. pt now resting in bed and watching tv. call light in reach. all needs met at this time.
[2023-02-22] VITALS (10 sets, daily range): BP systolic 103–139; BP diastolic 50–74; PULSE 43–74; TEMP 97.4–98.7
[2023-02-22 08:25] LABS: INR 1.1 (0.8-3.0); PROTHROMBIN TIME 11.8 SECONDS (9.7-12.8)
--- NOTE | 2023-02-22 08:32 | NUR ---
PT UP TO BR AND THEN RETURNED TO BED. UP WITH THERAPY AMBULATING IN HALLS WITH SLOW STEADY GAIT SBA X1. IV TO LFA. AM MEDS GIVEN ORDERED. PT REFUSING BREAKFAST THIS AM. DRESSINGS TO LEFT KNEE CDI WITH SM AMT OF DRAINAGE IN HEMOVAC THIS AM. 90 MLS AT SHIFT CHANGE.
[2023-02-22 08:36] LABS: CALCIUM 8.1 mg/dL (8.4-10.2); CREATININE, serum 1.53 mg/dL (0.57-1.11); POTASSIUM 4.4 mmol/L (3.5-4.5)
[2023-02-22 09:18] LABS: BASO % 0.6 % (0.0-2.0); EOS # 0.2 K/mm3 (0.0-0.7); EOS % 2.6 % (0.0-4.0); GRAN # 4.9 K/mm3 (1.4-6.5); GRAN % 68.9 % (42.2-75.2); HEMOGLOBIN 10.2 g/dl (12.5-16.0); LYMPH # 1.2 K/mm3 (1.2-3.4); LYMPH % 16.6 % (20.0-51.0); MEAN CELL VOLUME 99 fl (80.0-100.0); MEAN CORPUSCULAR HEMOGLOBIN 32 pg (27-31); MEAN CORPUSCULAR HGB CONC 32 g/dl (33.0-37.0); MEAN PLATELET VOLUME 10.5 fl (7.4-10.4); MONO # 0.8 K/mm3 (0.1-0.6); MONO % 11.2 % (1.7-9.3); PLATELET COUNT 180 K/mm3 (130-400); REDCELL DISTRIBUTION WIDTH-CV 13.8 % (11.5-14.5)
[2023-02-22 09:19] LABS: HEMATOCRIT 31.7 % (37.0-47.0)
--- NOTE | 2023-02-22 10:51 | NUR ---
HEMOVAC DRAIN DISCONTINUED PER ORDERS, PT TOLERATED WELL. DRESSINGS CDI.
--- NOTE | 2023-02-22 13:43 | NUR ---
foundry worker apprentice met with patient and then with daughter and spouse. Patient wishes to take outpatient therapy at the [place] location of [facility]. Worker contacted [facility] and advised. RN will ensure that referral is sent to [facility]. Patient will discharge home today and denies further needs. Discharge plan: Home with spouse and ouptient therapy as [facility].
[2023-02-22] MEDS ORDERED: CEPHALEXIN500 M1 PO (14:00)
[2023-02-22] MEDS ORDERED: NORCO 325 MG-51 TAB PO (14:00)
[2023-02-22] MEDS ORDERED: LOVENOX 3030 MG/0.3 SQ (14:01)
--- NOTE | 2023-02-22 16:10 | NUR ---
DISCHARGE INSTRUCTIONS REVIEWED WITH PT AND FAMILY. QUESTIONS SOLICITED AND ANSWERED. PT LEFT UNIT PER WHEEL CHAIR AFTER DRESSING CHANGE COMPLETE.
== END 2023-02-22 17:47 | disposition home or self-care (01) ==
LOC: SDCO 05:45 → SURG 10:25 → SDCO 11:30
PROVIDERS: Nurse Anesthetist, Certified Registered; Physician Assistant
DX: M17.12 Unilateral primary osteoarthritis, left knee (principal); I10 Essential (primary) hypertension; I48.91 Unspecified atrial fibrillation; K21.9 Gastro-esophageal reflux disease without esophagitis; M35.3 Polymyalgia rheumatica; Z79.52 Long term (current) use of systemic steroids; Z79.01 Long term (current) use of anticoagulants; Z79.899 Other long term (current) drug therapy; G89.29 Other chronic pain; M54.9 Dorsalgia, unspecified; Z93.2 Ileostomy status
CPT/HCPCS: OP; A9284; C1713; C1776; J0665; J0690; J1580; J1650; J1885; J2250; J2270; J2704; J2795; J3010; J7120; J7512

== ENCOUNTER → 2023-09-21 | Outpatient (CLI) | payer MEDICARE, BC ==
[~2023-09-21] MED LIST changes: +CEPHALEXIN500 M1 PO; +CORDARONE200 MG/TAB PO; +Gadoterate 15 ML VIAL IV ONE; +VERAPAMIL180 MG/TAB PO
== END ==
LOC: COL.RAD 12:36
DX: M41.86 Other forms of scoliosis, lumbar region (principal); M48.02 Spinal stenosis, cervical region; Z98.1 Arthrodesis status; Z98.890 Other specified postprocedural states
CPT/HCPCS: A9575

== ENCOUNTER → 2023-10-11 | Outpatient (CLI) | payer MEDICARE, BC ==
[~2023-10-11] MED LIST changes: -Gadoterate 15 ML VIAL IV ONE
== END ==
LOC: COL.RAD 12:29
DX: K63.9 Disease of intestine, unspecified (principal); Z98.1 Arthrodesis status